=== PATIENT | female | born 1965 | race Caucasian/White ===

== ENCOUNTER 2023-07-05 07:19 | Day surgery (SDC) | payer OTHER, SELFPAY ==
--- NOTE | 2023-07-04 08:20 | HO.ANESPROP2 ---
Documented by User: Krys Bonds NP 07/04/23 08:20 HPI - Anesthesia Eval Consult details Narrative: 57yo F for Colonoscopy [facility] Past Medical History Medical History (Updated 07/04/23 @ 06:54 by Almaz Packer RN) Left hand pain Hx of irritable bowel syndrome Hx of multiple sclerosis Hx of major depression Surgical History Surgical History (Updated 07/04/23 @ 06:54 by Almaz Packer RN) Hx laparoscopic cholecystectomy Hx of tubal ligation Hx of section History of partial hysterectomy Hx of colonoscopy Social History Social History Patient Tobacco Use Status: Never used Tobacco Use of substances other than those prescribed or required for medical reasons: No Are you DNR?: No Advance Directives: No Advance Directives Information Provided: Yes Meds Allergies Allergy/AdvReac Type Severity Reaction Status Date / Time No Known Allergies Allergy Verified 07/04/23 06:55 [No Known Allergies*] Home Medications Medication Instructions Recorded Confirmed Last Taken Type cetirizine 10 mg tablet 10 mg PO DAILY 07/04/23 Unknown History cod liver oil 07/04/23 Unknown History diazepam 5 mg tablet 5 mg PO DAILY PRN Anxiety 07/04/23 Unknown History diroximel fumarate 231 mg mg PO 07/04/23 Unknown History capsule,delayed release (Vumerity) fluoxetine 20 mg capsule 20 mg PO DAILY 07/04/23 Unknown History ipratropium bromide 21 mcg (0.03 intranasal 07/04/23 Unknown History %) nasal spray methylphenidate HCl 10 mg tablet 10 mg PO BID 07/04/23 Unknown History pramipexole 0.5 mg tablet 0.5 mg PO DAILY 07/04/23 Unknown History vitamin B complex 07/04/23 Unknown History Assessment and Plan Assessment Anesthesia Assessment: Chart Reviewed Documented by User: Felipe Arizmendi MD 07/05/23 08:28 [facility] Past Medical History Medical History (Updated 07/04/23 @ 06:54 by Almaz Packer RN) Left hand pain Hx of irritable bowel syndrome Hx of multiple sclerosis Hx of major depression Functional capacity: independent ambulation Narrative: independently functional Family History Family history of problems with anesthesia: No Surgical History Surgical History (Updated 07/04/23 @ 06:54 by Almaz Packer RN) Hx laparoscopic cholecystectomy Hx of tubal ligation Hx of section History of partial hysterectomy Hx of colonoscopy History of Problems with Anesthesia: No Social History Social History Patient Tobacco Use Status: Never used Tobacco Use of substances other than those prescribed or required for medical reasons: No Are you DNR?: No Advance Directives: No Advance Directives Information Provided: Yes Meds Allergies Allergy/AdvReac Type Severity Reaction Status Date / Time No Known Allergies Allergy Verified 07/04/23 06:55 [No Known Allergies*] Home Medications Medication Instructions Recorded Confirmed Last Taken Type cetirizine 10 mg tablet 10 mg PO DAILY 07/04/23 Unknown History cod liver oil 07/04/23 Unknown History diazepam 5 mg tablet 5 mg PO DAILY PRN Anxiety 07/04/23 Unknown History diroximel fumarate 231 mg mg PO 07/04/23 Unknown History capsule,delayed release (Vumerity) fluoxetine 20 mg capsule 20 mg PO DAILY 07/04/23 Unknown History ipratropium bromide 21 mcg (0.03 intranasal 07/04/23 Unknown History %) nasal spray methylphenidate HCl 10 mg tablet 10 mg PO BID 07/04/23 Unknown History pramipexole 0.5 mg tablet 0.5 mg PO DAILY 07/04/23 Unknown History vitamin B complex 07/04/23 Unknown History Exam Airway Mallampati Class: II TM Dist: >3cm Neck ROM: Full Loose/Missing/Broken Teeth: No Heart: ok Lungs: ok Assessment and Plan Assessment Anesthesia Assessment: Anesthesia Plan Discussed Final Anesthetic Review Family History of Problems with Anesthesia: No History of Problems with Anesthesia: No NPO: Yes ASA Class: III Final Preanesthetic Review: No Changes in Pt Med Stat, Meds/Allgs Chart Reviewed, Consent Obtained/Reviewed and Anes Risks/Benef Reviewed Patient Risk: Intermediate Procedure Risk: Low Anesthetic Plan Anesthetic Plan: MAC: and Agree w/ Assess. and Plan Disposition: Standard PACU
[2023-07-05 07:33] VITALS: BMI 22.0
[2023-07-05 08:05] VITALS: BP 106/64; PULSE 72; RESP 16; TEMP 36.9; O2SAT 98
--- NOTE | 2023-07-05 08:36 | P.BOP_ITS ---
Brief Operative Note Date of Service: 07/05/23 Pre-op diagnosis: Screening Post-op diagnosis: other (Incomplete colonoscopy to the due to poor prep) Procedure: Colonoscopy to the Surgeon: Rustam Hairston MD Anesthesia: MAC Was an Teenage Babysitter used for this Procedure?: No Estimated blood loss (mL): 0 Pathology: none sent Condition: stable Disposition: PACU
[2023-07-05 08:41] VITALS: BP 104/61; PULSE 79; RESP 18; TEMP 36.3; O2SAT 99
[2023-07-05 08:56] VITALS: BP 112/67; PULSE 69; RESP 16; TEMP 36.2; O2SAT 99
--- NOTE | 2023-07-05 08:56 | OP_ITS ---
DATE OF SERVICE: 07/05/2023 SURGEON: Rustam Hairston MD INDICATIONS: The patient presents for followup of personal history of tubular adenoma of the colon and colorectal cancer screening. Full consent obtained from her for this, including risks of bleeding and perforation. PREOPERATIVE DIAGNOSIS: Colorectal cancer screening and personal history of tubular adenoma of the colon. POSTOPERATIVE DIAGNOSIS: Colorectal cancer screening and personal history of tubular adenoma of the colon, incomplete exam to the transverse colon due to poor prep. PROCEDURE PERFORMED: Colonoscopy to the transverse colon with inability to complete the exam due to poor prep. ESTIMATED BLOOD LOSS: COMPLICATIONS: ANESTHESIA: Monitored anesthesia care. ASSISTANTS: SPECIMENS: DESCRIPTION OF PROCEDURE: The patient was placed in the left lateral decubitus position. The digital rectal exam revealed some external hemorrhoidal tissue, but no other abnormalities. The Olympus video pediatric colonoscope was entered into the rectum and advanced to the region of the transverse colon judging by anatomic features. However, the preparation proximal to this was very poor with solid and liquid stool and was very poor distal to the area as well. Therefore, I did not bother to proceed any further. The scope was slowly withdrawn assessing mucosal surfaces as best as possible without any abnormalities noted, but again the prep was very poor and limited our visualization. The scope was withdrawn from the patient. She tolerated the procedure well and was returned to recovery area in stable condition. IMPRESSION: 1. Limited exam to transverse colon due to poor prep. 2. External hemorrhoids. PLAN: The patient will be rescheduled with a 2-day preparation to allow for better inspection of the colon. Rustam Hairston MD RMW/MODL / [id number]
== END 2023-07-05 09:37 | disposition home or self-care (01) ==
PROVIDERS: PCP Internal Medicine; Visit Provider Internal Medicine
PROC: 0DJD8ZZ Inspection of Lower Intestinal Tract, Via Natural or Artificial Opening Endoscopic (ICD-10-PCS; CPT 45378; principal; 2023-07-05 07:30)
DX: Z12.11 Encounter for screening for malignant neoplasm of colon (principal); Z86.010 Personal history of colon polyps; Z80.0 Family history of malignant neoplasm of digestive organs; Z83.719 Family history of colon polyps, unspecified; K64.4 Residual hemorrhoidal skin tags; G35 Multiple sclerosis; Z79.899 Other long term (current) drug therapy; Z90.49 Acquired absence of other specified parts of digestive tract; Z98.890 Other specified postprocedural states; Z87.891 Personal history of nicotine dependence
CPT/HCPCS: 45378; J2704

== ENCOUNTER 2023-08-11 09:23 | Day surgery (SDC) | payer OTHER, SELFPAY ==
--- NOTE | 2023-08-09 12:55 | HO.ANESPROP2 ---
Documented by User: Krys Bonds NP 08/09/23 12:55 HPI - Anesthesia Eval Consult details Narrative: 58yo F for Colonoscopy [facility] Past Medical History Medical History Left hand pain Hx of irritable bowel syndrome Hx of multiple sclerosis Hx of major depression Family History Family history of problems with anesthesia: No Surgical History Surgical History Hx of hand surgery Hx laparoscopic cholecystectomy Hx of tubal ligation Hx of section History of partial hysterectomy Hx of colonoscopy History of Problems with Anesthesia: No Social History Social History Patient Tobacco Use Status: Former Tobacco user Quit Date: 20 yrs ago Use of substances other than those prescribed or required for medical reasons: Yes Substance Use Frequency: Occasionally Are you DNR?: No Advance Directives: No Advance Directives Information Provided: Yes Meds Allergies Allergy/AdvReac Type Severity Reaction Status Date / Time No Known Allergies Allergy Verified 08/11/23 09:35 [No Known Allergies*] Home Medications ?Medication ?Instructions ?Recorded ?Confirmed ?Last Taken ?Type cetirizine 10 mg tablet 10 mg PO DAILY 07/04/23 08/11/23 Unknown History fluoxetine 20 mg capsule 20 mg PO DAILY 07/04/23 08/11/23 Unknown History ipratropium bromide 21 mcg (0.03 1 spray intranasal DAILY 07/04/23 08/11/23 Unknown History %) nasal spray methylphenidate HCl 10 mg tablet 10 mg PO BID 07/04/23 08/11/23 Unknown History pramipexole 0.5 mg tablet 0.5 mg PO DAILY 07/04/23 08/11/23 Unknown History cod liver oil 1 cap PO DAILY 08/09/23 08/11/23 Unknown History vitamin B complex 1 tab PO DAILY 08/09/23 08/11/23 Unknown History ocrelizumab 30 mg/mL intravenous 600 mg IV [id number] 08/11/23 08/11/23 Unknown History solution (Ocrevus) Assessment and Plan Assessment Anesthesia Assessment: Chart Reviewed Final Anesthetic Review Family History of Problems with Anesthesia: No History of Problems with Anesthesia: No Documented by User: Adela Tristan MD 08/11/23 10:23 HPI - Anesthesia Eval Consult details Narrative: 58yo F for Colonoscopy. Returns after 2 day prep. Rescheduled from 07/05/23 secondary to poor prep [facility] Active Problems Active Problems: Multiple sclerosis- doing well. Just started new medication- infusion every 6 months. Last infusion 1 week ago Past Medical History Medical History Left hand pain Hx of irritable bowel syndrome Hx of multiple sclerosis Hx of major depression Family History Family history of problems with anesthesia: No Surgical History Surgical History Hx of hand surgery Hx laparoscopic cholecystectomy Hx of tubal ligation Hx of section History of partial hysterectomy Hx of colonoscopy History of Problems with Anesthesia: No Social History Social History Patient Tobacco Use Status: Former Tobacco user Quit Date: 20 yrs ago Use of substances other than those prescribed or required for medical reasons: Yes Substance Use Frequency: Occasionally Are you DNR?: No Advance Directives: No Advance Directives Information Provided: Yes Meds Allergies Allergy/AdvReac Type Severity Reaction Status Date / Time No Known Allergies Allergy Verified 08/11/23 09:35 [No Known Allergies*] Home Medications ?Medication ?Instructions ?Recorded ?Confirmed ?Last Taken ?Type cetirizine 10 mg tablet 10 mg PO DAILY 07/04/23 08/11/23 Unknown History fluoxetine 20 mg capsule 20 mg PO DAILY 07/04/23 08/11/23 Unknown History ipratropium bromide 21 mcg (0.03 1 spray intranasal DAILY 07/04/23 08/11/23 Unknown History %) nasal spray methylphenidate HCl 10 mg tablet 10 mg PO BID 07/04/23 08/11/23 Unknown History pramipexole 0.5 mg tablet 0.5 mg PO DAILY 07/04/23 08/11/23 Unknown History cod liver oil 1 cap PO DAILY 08/09/23 08/11/23 Unknown History vitamin B complex 1 tab PO DAILY 08/09/23 08/11/23 Unknown History ocrelizumab 30 mg/mL intravenous 600 mg IV [id number] 08/11/23 08/11/23 Unknown History solution (Ocrevus) Exam Height,Weight and Vital Signs: Height 5 ft 3 in Weight 55.792 kg Vital Signs Temp Pulse Resp BP Pulse Ox O2 Del Method 08/11/23 09:56 97.3 F 62 15 120/67 99 Room Air Airway Mallampati Class: II TM Dist: >3cm Loose/Missing/Broken Teeth: No (Top front teeth veneers. Denies broken, loose, missing teeth) Heart: RRR Lungs: CTAB Other: Nasal Stud Assessment and Plan Assessment Anesthesia Assessment: Anesthesia Plan Discussed and Chart Reviewed Final Anesthetic Review Family History of Problems with Anesthesia: No History of Problems with Anesthesia: No NPO: Yes ASA Class: II Final Preanesthetic Review: No Changes in Pt Med Stat, Meds/Allgs Chart Reviewed, Consent Obtained/Reviewed and Anes Risks/Benef Reviewed Patient Risk: Intermediate Procedure Risk: Low Assessment/Block/Sedation in SS: Assess/Block/Sedation-SS Anesthetic Plan Anesthetic Plan: MAC: and TIVA Disposition: Standard PACU
[2023-08-09 14:36] VITALS: BMI 21.6
[2023-08-11 09:37] VITALS: BMI 21.8
[2023-08-11 09:56] VITALS: BP 120/67; PULSE 62; RESP 15; TEMP 36.3; O2SAT 99
[2023-08-11] MEDS: Lactated Ringers 1,000 ML 100 ML IVCONT (10:16)
[2023-08-11 11:52] VITALS: BP 98/57; PULSE 66; RESP 16; TEMP 36.8; O2SAT 100
[2023-08-11 11:57] VITALS: BP 88/55; PULSE 65; RESP 16; O2SAT 99
--- NOTE | 2023-08-11 11:57 | PM.OP ---
Brief Operative Note Date of Service: 08/11/23 Pre-op diagnosis: Screening Post-op diagnosis: other (Diverticulosis) Procedure: Colonoscopy to the cecum Surgeon: Rustam Hairston MD Anesthesia: MAC Was an Experimental Electronics Developer used for this Procedure?: No Estimated blood loss (mL): 0 Pathology: none sent Condition: stable Disposition: PACU
[2023-08-11 12:07] VITALS: BP 103/55; PULSE 67; RESP 16; TEMP 36.6; O2SAT 98
--- NOTE | 2023-08-11 12:15 | OP_ITS ---
DATE OF SERVICE: 08/11/2023 SURGEON: Rustam Hairston MD INDICATIONS: The patient presents for followup of personal history of tubular adenoma of the colon, family history of colorectal cancer and polyps, and need for colorectal cancer screening. Full consent has been obtained from her for this, including risks of bleeding and perforation. PREOPERATIVE DIAGNOSIS: POSTOPERATIVE DIAGNOSIS: PROCEDURE PERFORMED: Colonoscopy to the cecum. ESTIMATED BLOOD LOSS: COMPLICATIONS: ANESTHESIA: Monitored anesthesia care. ASSISTANTS: SPECIMENS: PREOPERATIVE DIAGNOSES: Colorectal cancer screening, personal history of tubular adenoma of the colon, family history of colorectal polyps and cancer. DESCRIPTION OF PROCEDURE: The patient was placed in the left lateral decubitus position. A digital rectal exam revealed no abnormalities. The Olympus video pediatric colonoscope was entered into the rectum and advanced easily to the cecum. Once in the cecum I did identify normal-appearing cecal pouch with appendiceal orifice and a normal-appearing ileocecal valve. The entire cecum and ileocecal valve were well visualized and appeared normal. The scope was slowly withdrawn assessing all mucosal surfaces carefully. Preparation was excellent. I did not visualize any sign of polyps, colitis, nor angiodysplasia. There was a mild amount of sigmoid diverticulosis. In the rectum, scope was retroflexed visualizing internal hemorrhoids, but no other pathology. The rectal mucosa appeared normal. The scope was straightened and withdrawn from the patient. She tolerated the procedure well and was returned to the recovery area in stable condition. IMPRESSION: 1. Mild sigmoid diverticulosis. 2. Small internal hemorrhoids. PLAN: Given her previous history and family history, I would recommend a followup colonoscopy in 5 years. She did a 2-day preparation for this procedure, which worked very well, and she would need to do that again for future colonoscopies as well. This has been discussed with her . MD BILL Fan/KING / [id number]
== END 2023-08-11 12:30 | disposition home or self-care (01) ==
PROVIDERS: PCP Internal Medicine; Visit Provider Internal Medicine
PROC: 0DJD8ZZ Inspection of Lower Intestinal Tract, Via Natural or Artificial Opening Endoscopic (ICD-10-PCS; CPT 45378; principal; 2023-08-11 11:00)
DX: Z12.11 Encounter for screening for malignant neoplasm of colon (principal); Z86.010 Personal history of colon polyps; Z80.0 Family history of malignant neoplasm of digestive organs; Z83.719 Family history of colon polyps, unspecified; K57.30 Diverticulosis of large intestine without perforation or abscess without bleeding; K64.8 Other hemorrhoids; K58.9 Irritable bowel syndrome, unspecified; G35 Multiple sclerosis; F32.A Depression, unspecified; Z79.899 Other long term (current) drug therapy; Z90.49 Acquired absence of other specified parts of digestive tract; Z87.891 Personal history of nicotine dependence
CPT/HCPCS: 45378; J2704